=== PATIENT | female | born 1970 | race Two or more races ===

== ENCOUNTER 2018-08-11 05:59 | Day surgery (SDC) | payer OTHER ==
[2018-08-11] VITALS (9 sets, daily range): BP systolic 100–113; BP diastolic 59–71
[~2018-08-11] VITALS: Ht 162.6 cm; Wt 64.4 kg
[~2018-08-11 05:59] MED LIST: CRESTOR20 MG ORAL; NEXIUM40 MG ORAL; ZANTAC150 MG ORAL
--- NOTE | 2018-08-11 06:21 | Anethesia Preoperative Eval ---
Anesthesia Pre-op PMH/ROS General Date of Evaluation: Aug 11, 2018 Time of Evaluation: 06:18 Anesthesiologist: claudio ASA Score: ASA 2 Mallampati Score Class I : Soft palate, uvula, fauces, pillars visible Class II: Soft palate, uvula, fauces visible Class III: Soft palate, base of uvula visible Class IV: Only hard plate visible Mallampati Classification: Class II Surgeon: carlos Diagnosis: gerd, abdominal pain Surgical Procedure: egd/colonoscopy Anesthesia History: none Social History: smoking - nonsmoker Family History: no anesthesia problems Allergies: Coded Allergies: PENICILLINS (Verified Allergy, Intermediate, 08/11/18) SKIN RASH Medications: see eMAR Patient NPO?: Yes Past Medical History Cardiovascular: Reports: other - hypercholesterolemia Gastrointestinal/Genitourinary: Reports: GERD, other - abnormal uterine bleeding, constipation, negative urine HCG results Anesthesia Pre-op Phys. Exam Physician Exam Last Vital Signs Date Time Temp Pulse Resp B/P (MAP) Pulse Ox O2 Delivery O2 Flow Rate FiO2 08/11/18 06:45 97.0 77 20 111/71 99 Room Air Constitutional: NAD Neurologic: CN 2-12 intact Cardiovascular: RRR Respiratory: CTA Gastrointestinal: S/NT/ND Airway Exam Mallampati Score: Class II MO: limited Neck: flexible TMD: 2fb ROM: limited Anesthesia Pre-op A/P Labs Labs Test 08/11/18 06:15 Urine HCG, Qualitative Negative (NEGATIVE) Risk Assessment & Plan Assessment: asa2 Plan: mac Status Change Before Surgery: No Pre-Antibiotics Drug: Elsy Signh MD Aug 11, 2018 06:21
[2018-08-11] MEDS ORDERED: Atropine Inj 1mg/10ml Syr IV PRN (06:45)
[2018-08-11] MEDS ORDERED: DiphenhydrAMINE 50mg/ml Inj IVP PRN (06:45)
[2018-08-11] MEDS ORDERED: Midazolam 2mg/2ml Inj IVP PRN (06:45)
[2018-08-11] MEDS ORDERED: fentaNYL 100 mcg/2 mL IV PRN (06:45)
--- NOTE | 2018-08-11 07:37 | Short Stay Surgery H&P ---
History of Present Illness History of Present Illness Chief Complaint abdominal pains/GERDS HPI Livia Rucker is a 47 year old female who was admitted on for Gerd, Abdominal Pain Patient History Allergies: Coded Allergies: PENICILLINS (Verified Allergy, Intermediate, 08/11/18) SKIN RASH PAST MEDICAL HISTORY: (1) Hyperlipidemia Medication History Scheduled Esomeprazole Magnesium (Nexium), 40 MG ORAL DAILY, (Reported) Ranitidine Hcl* (Zantac*), 150 MG ORAL TWICE A DAY, (Reported) Rosuvastatin Calcium* (Crestor*), 20 MG ORAL DAILY, (Reported) Review of Systems Cardiovascular: Reports: no symptoms Respiratory: Reports: no symptoms Skeletal: Reports: trauma Gastrointestinal: Reports: gastro esophageal reflux disease Genitourinary: Reports: no symptoms Neurologic: Reports: no symptoms Endocrine: Reports: no symptoms Hematologic: Reports: no symptoms Physical Exam Vital Signs Last Vital Signs Date Time Temp Pulse Resp B/P (MAP) Pulse Ox O2 Delivery O2 Flow Rate FiO2 08/11/18 06:45 97.0 77 20 111/71 99 Room Air Labs Laboratory Tests Test 08/11/18 06:15 Urine HCG, Qualitative Negative (NEGATIVE) Skin: normal HENT: normal Heart: normal Lungs: normal Abdomen: abnormal Extremities: normal Genitourinary: normal Plan Plan of Care Upper and lower GI endoscopies Preop Interventions None Summary of Findings See the reports Attestation Are the patient's medical conditions optimized for surgery? Attestation Response: yes Bianca Moncada MD Aug 11, 2018 07:37
--- NOTE | 2018-08-11 07:38 | Pre-Procedure Note/Attestation ---
Pre-Procedure Note/Attestation Complete Prior to Procedure Planned Procedure: left Procedure Narrative: Examination of the upper and the lower GI tract via endoscopy Indications for Procedure Pre-Operative Diagnosis: R/O Gastritis/colitis Attestation I attest that I discussed the nature of the procedure; its benefits; risks and complications; and alternatives (and the risks and benefits of such alternatives ), prior to the procedure, with the patient (or the patient's legal sales representative trainee). I attest that, if there was a reasonable possibility of needing a blood transfusion, the patient (or the patient's legal sales representative trainee) was given the [facility] standardized written summary, pursuant to the [place] Blood Safety Act ([place] Health and Safety Code # 1645, as amended). I attest that I re-evaluated the patient just prior to the surgery and that there has been no change in the patient's H&P, except as documented below: Bianca Moncada MD Aug 11, 2018 07:38
[2018-08-11] MEDS ORDERED: Lidocaine 1% MPF 10mg/ml 5ml ONE (08:00)
[2018-08-11] MEDS ORDERED: Propofol 200mg/20ml IV ONE (08:00)
[2018-08-11] MEDS ORDERED: LR 1000ml ONE (08:00)
--- NOTE | 2018-08-11 08:32 | Endoscopy Procedure Note ---
Endoscopy Procedure Note General Indication for Procedure: Abdominal pain/GERDs/history of helicobacter pylori infection treated. Procedures Performed: EGD - Completely normal Upper GI endoscopy, biopsy obtained per random from gastric body., colonoscopy - Completely normal total colonoscopy. Specimen: yes Pt Tolerated Procedure Well: Yes Estimated Blood Loss: none Anesthesia Anesthesiologist: Zion Godoy Anesthesia: moderate sedation Medications Medication Given: see anesthesia record Inserted Devices Implant(s) used?: No Quality Quality of Bowel Preparation: Excellent Did scope reach the cecum?: Yes Was there any complications?: No GI Core Measures 50 yrs or older w/o bx or poly: No 10yrs. F/U not recommended: Yes If not recommended, why?: 10 yrs. F/U needed: Yes 18 years or older w/prev. colo: No <3yrs. since last colonoscopy: No Med reason:<3 yrs.: System Reason:<3 yrs.: Bianca Moncada MD Aug 11, 2018 08:32
--- NOTE | 2018-08-11 08:33 | Discharge Instructions ---
Discharge Instructions Discharge Instructions Follow up with: Make applointment to see the doctor in office after 2 weeks For Congestive Heart Failure Reminder Report to your physician any weight gain of 5 pounds or more in one week. Bianca Moncada MD Aug 11, 2018 08:33
--- NOTE | 2018-08-11 08:58 | Immediate Post-Op Evaluation ---
Immediate Post-Op Evalulation Immediate Post-Op Evalulation Procedure: egd/colonoscopy/bx Date of Evaluation: Aug 11, 2018 Time of Evaluation: 08:52 IV Fluids: 400ml lr Blood Products: none Estimated Blood Loss: negligible Blood Pressure Systolic: 109 Blood Pressure Diastolic: 60 Pulse Rate: 73 Respiratory Rate: 18 O2 Sat by Pulse Oximetry: 100 Temperature (Fahrenheit): 97.3 Pain Score (1-10): 0 Nausea: No Vomiting: No Complications none Patient Status: awake, reacts, patent Hydration Status: adequate Drug: Elsy Singh MD Aug 11, 2018 08:58
--- NOTE | 2018-08-11 09:03 | 48 Hour Post Anesthesia Eval ---
Post Anesthesia Evaluation Procedure: egd/colonoscopy/bx Date of Evaluation: Aug 11, 2018 Time of Evaluation: 08:54 Blood Pressure Systolic: 104 0: 59 Pulse Rate: 71 Respiratory Rate: 18 Temperature (Fahrenheit): 97.3 O2 Sat by Pulse Oximetry: 100 Airway: patent Nausea: No Vomiting: No Pain Intensity: 0 Hydration Status: adequate Cardiopulmonary Status: stable Mental Status/LOC: patient returned to baseline Post-Anesthesia Complications: none Follow-up care needed: N/A Elsy Saldana MD Aug 11, 2018 09:03
--- NOTE | 2018-08-11 16:30 | Operative Note - Dictated ---
DATE OF OPERATION: 08/11/2018 SURGEON: Bianca Moncada M.D. PROCEDURE: Esophagogastroduodenoscopy with biopsy. PREOPERATIVE DIAGNOSES: Abdominal pain, gastroesophageal reflux, history of Helicobacter pylori gastritis. POSTOPERATIVE DIAGNOSIS: Completely normal upper GI endoscopy. Biopsy was taken per random from gastric body to rule out Helicobacter infection. MEDICATION USED: Per Dr. Saldana, anesthesiologist. INSTRUMENT: GIF Olympus upper GI video endoscope. DESCRIPTION OF PROCEDURE: The patient after arriving an endoscopy unit, was told about risks and benefits of the procedure, which she accepted and signed informed consent. She was then put on the left lateral decubitus position. After adequate IV sedation, the scope was gently passed through the cricopharyngeal area, was lodged into the upper esophagus and gradually advanced towards gastroesophageal junction. The entire length of esophagus looked normal. No evidence of any abnormalities such as ulcers, tumors, polyps, stricture, etc. was found. GE junction also looked normal. No Giles's or hiatal hernia noted. At this time, the scope was advanced into the stomach, gastric cavity was distended with insufflation of air and the areas of the fundus and the body and the antrum were examined closely, which revealed normal gastric mucosa without any pathological findings. The retroflexion maneuver was also applied and the area of the gastroesophageal junction was examined in a closer fashion, which revealed no abnormalities. At this time, one random biopsy from gastric body was obtained and subsequently the scope was passed through the antrum, pylorus, first and second portion of duodenum that they all looked normal. Finally, the scope was pulled out and procedure was terminated. The patient tolerated the procedure well, left the endoscopy room in a good condition. Bianca Moncada M.D. DR: GEORGE JOB#: [id number] CC:
--- NOTE | 2018-08-11 16:30 | Pre-op HX & Phy Repo 2 SIG ---
DATE OF ADMISSION: 08/11/2018 HISTORY OF PRESENT ILLNESS: The patient is a 47-year-old female who is being seen prior to undergoing the procedure of upper and lower GI endoscopic procedures for which she has been scheduled to receive for evaluation of her gastrointestinal conditions that she has been complaining after being injured at job site. The patient basically is telling me that she has been suffering from experiencing pain over the upper part of the abdomen, which radiates towards the chest associated with heartburn that is being diagnosed in the past. This condition has basically happened subsequent to her work injury when she was prescribed nonsteroidal antiinflammatory agents such as ibuprofen and Motrin etc., which gradually gave rise to the appearance of the symptoms in the upper GI tract associated with feeling heartburn consistent with GERD. She was subsequently treated with multiple medications including Nexium, Mylanta, and H2 blockers such as Zantac to which she kind of responded. She however denies any having difficulty with swallowing. There has been no history of nausea, vomiting, hematemesis, melena, or hematochezia, etc. There has been no history of major weight loss. The appetite seems to be fair. However, she does have occasional nausea that she says now which is not that significant. It is important to mention that in the past, she has been diagnosed to have Helicobacter pylori infection for which she has received adequate treatment with a combination of Biaxin and amoxicillin that she has explained; however, there has been also blood test done the result of which is not available and at this point, we are going to check her with obtaining biopsy from the stomach to make sure that the Helicobacter pylori infection has been adequately treated as well at. She denies having any major constipation or diarrhea. The patient while working for a company by the name of [employer] got injured during the period of her work as she was functioning as an invoice control clerk. Subsequent to that, she had injuries over different parts of the body, but mostly over the knees both sides for which she got medical treatment. PAST MEDICAL HISTORY: The patient has had history of hyperlipidemia. SURGICAL HISTORY: None. ALLERGIES: To penicillin. FAMILY HISTORY: None significant. HABITS: She denies drinking alcohol or smoking cigarettes. MEDICATIONS: Current medications Mylanta, Elavil, Zantac, and Nexium. REVIEW OF SYSTEMS: Basically history of present illness. Currently, she denies having any chest pain, shortness of breath, or cough, etc. No dysuria, pyuria, hematuria. PHYSICAL EXAMINATION: GENERAL: At this time reveals alert, well-oriented female, does not seem to be in any acute distress. Answers the questions quite properly. VITAL SIGNS: Are all stable. HEENT: Normocephalic. Pupils equal in size and reactive to light and accommodation. No visible jaundice. Buccal cavity, tongue midline, well hydrated. No ulcers. NECK: Supple. No JVD or thyromegaly. CHEST: Clear to auscultation and percussion. No rales or rhonchi. HEART: S1, S2 normal. Regular rhythm. ABDOMEN: Soft. Mildly tender all over the abdomen, but no mass or hepatosplenomegaly. Bowel sounds are present. EXTREMITIES: Unremarkable. No pretibial edema, cyanosis, or clubbing. CENTRAL NERVOUS SYSTEM: Grossly normal. PREOPERATIVE DIAGNOSES: 1. Abdominal pain with a history of Helicobacter infection (post treated), rule out NSAID-induced gastritis, peptic ulcer disease. 2. Generalized abdominal pain of uncertain etiology. 3. Hyperlipidemia. 4. History of bodily injury, work related. RECOMMENDATIONS: The patient at this time seems to be quite stable to undergo the procedure of upper GI endoscopy, which requires anesthesia. I spoke with her and she agrees that she will sign the consent for this procedure. Said Ya Moncada DR: GALDINO JOB#: [id number] CC:
--- NOTE | 2018-08-11 18:45 | Procedure Note ---
DATE OF PROCEDURE: 08/11/2018 SURGEON: Bianca Moncada M.D. PROCEDURE: Total colonoscopy. PREOPERATIVE DIAGNOSIS: Abdominal pain. POSTOPERATIVE DIAGNOSIS: Completely normal total colonoscopy. MEDICATION USED: Per Dr. Alberts. INSTRUMENT: GIF Olympus video colonoscope. DESCRIPTION OF PROCEDURE: The patient after arriving at endoscopy unit, was told about risks and benefits of the procedure, which she accepted and signed informed consent. At this point, she was put on the left lateral decubitus position. After adequate IV sedation, the scope was gently passed through the anal area and careful examination of this section revealed particular abnormality such as hemorrhoids, colitis, tumors, or polyps . At this time, the scope was gradually passed through the rectosigmoid angle introduced into descending colon, advanced towards the splenic flexure, transverse colon, hepatic flexure, and finally was guided into the right colon all the way to the base of the cecum where the ileocecal valve and the cecum itself were examined very carefully that revealed no abnormalities. The colon cleanup was adequate. At this point, within 7 minutes the scope was gradually pulled out and re-evaluation of the colon through the endoscopy did not reveal any abnormalities as I mentioned. The patient tolerated the procedure well and left the endoscopy room in a good condition. Bianca Moncada M.D. DR: Salena JOB#: [id number] CC:
== END 2018-08-11 09:45 | disposition home or self-care (01) ==
LOC: GAS 05:59
DX: R10.9 Unspecified abdominal pain (principal); K21.9 Gastro-esophageal reflux disease without esophagitis; E78.5 Hyperlipidemia, unspecified; Z88.0 Allergy status to penicillin; E78.00 Pure hypercholesterolemia, unspecified; K29.70 Gastritis, unspecified, without bleeding; B96.81 Helicobacter pylori [H. pylori] as the cause of diseases classified elsewhere
CPT/HCPCS: 43239; 45378; 81025; J2704; 94003; 94150